=== PATIENT | male | born 1960 | race Caucasian/White ===

== ENCOUNTER 2023-02-10 21:07 | Emergency (ER) | payer OTHER ==
[2023-02-10 21:18] VITALS: RESP 18; TEMP 98
--- NOTE | 2023-02-10 21:53 | ED ---
ENT HPI - General Chief complaint: Dental/Oral Stated complaint: Toothache Time Seen by Provider: 02/10/23 21:16 Source: patient, RN notes reviewed, old records reviewed Mode of arrival: ambulatory Limitations: no limitations - History of Present Illness Initial comments: This is a 62-year-old male to the emergency department for evaluation of dental pain severe dental pain and swelling. Patient does have a loose tooth which she believes is secondary infection secondary to severe pain with no trauma. Patient does have some. Drainage from his mouth. Otherwise no complaints MD complaint: tooth pain -: days(s) Location: tooth # Severity: moderate Severity scale (1-10): 4 Consistency: constant Improves with: none Worsens with: none Context- Dental: history of dental caries Associated Symptoms: other (0) - Related Data Allergies Allergy/AdvReac Type Severity Reaction Status Date / Time No Known Allergies Allergy Verified 02/10/23 21:12 Review of Systems ROS Statement: Those systems with pertinent positive or pertinent negative responses have been documented in the HPI. ROS Other: All systems not noted in ROS Statement are negative. Past Medical History Past Medical History: No Reported History History of Any Multi-Drug Resistant Organisms: None Reported Past Surgical History: Coronary Bypass/CABG Past Psychological History: No Psychological Hx Reported Smoking Status: Current every day smoker Past Alcohol Use History: Occasional Past Drug Use History: None Reported General Exam Limitations: no limitations General appearance: alert, in no apparent distress Head exam: Present: atraumatic, normocephalic, normal inspection Eye exam: Present: normal appearance, PERRL, EOMI. Absent: scleral icterus, conjunctival injection, periorbital swelling ENT exam: Present: normal exam, mucous membranes moist, other (Loose tooth with evidence of abscess) Neck exam: Present: normal inspection. Absent: tenderness, meningismus, lymphadenopathy Respiratory exam: Present: normal lung sounds bilaterally. Absent: respiratory distress, wheezes, rales, rhonchi, stridor Cardiovascular Exam: Present: regular rate, normal rhythm, normal heart sounds. Absent: systolic murmur, diastolic murmur, rubs, gallop, clicks GI/Abdominal exam: Present: soft, normal bowel sounds. Absent: distended, tenderness, guarding, rebound, rigid Extremities exam: Present: normal inspection, full ROM, normal capillary refill. Absent: tenderness, pedal edema, joint swelling, calf tenderness Back exam: Present: normal inspection Neurological exam: Present: alert, oriented X3, CN II-XII intact Psychiatric exam: Present: normal affect, normal mood Skin exam: Present: warm, dry, intact, normal color. Absent: rash Course Vital Signs 02/10/23 02/10/23 21:09 22:22 Temperature 98 F Pulse Rate 71 72 Respiratory 18 18 Rate Blood Pressure 196/98 195/120 O2 Sat by Pulse 96 95 Oximetry - Reevaluation(s) Reevaluation #1: medical record is reviewed Reevaluation #2: patients pain is controlled Reevaluation #3: patient informed of results and questions answered Reevaluation #4: Was pt. sent in by a medical professional or institution (, [facility], [employer], urgent care, hospital, or longterm...) When possible be specific @ -no Did you speak to anyone other than the patient for history (EMS, parent, family, police, friend...)? What history was obtained from this source @ -no Did you review nursing and triage notes (agree or disagree)? Why? @ -agree Are old charts reviewed (outside hosp., previous admission, EMS record, old EKG, old radiological studies, urgent care reports/EKG's, longterm records)? Report findings @ -yes Differential Diagnosis (chest pain, altered mental status, abdominal pain women, abdominal pain men, vaginal bleeding, weakness, fever, dyspnea, syncope, headache, dizziness, GI bleed, back pain, seizure, CVA, palpatations, mental health, musculoskeletal)? @ -prior EKG interpreted by me (3pts min.). @ -no X-rays interpreted by me (1pt min.). @ -no CT interpreted by me (1pt min.). @ -no U/S interpreted by me (1pt. min.). @ -no What testing was considered but not performed or refused? (CT, X-rays, U/S, labs)? Why? @ -none What meds were considered but not given or refused? Why? @ -none Did you discuss the management of the patient with other professionals (professionals i.e. SRUT[facility] Carmona, [employer], lab, RT, psych nurse, social media project manager, supply officer, teacher, aoc airspace control officer, pillowcase cutter)? Give summary @ -no Was smoking cessation discussed for >3mins.? @ -no Was critical care preformed (if so, how long)? @ -no Were there social determinants of health that impacted care today? How? (Homelessness, low income, unemployed, alcoholism, drug addiction, transportation, low edu. Level, literacy, decrease access to med. care, custodial, rehab)? @ -none Was there de-escalation of care discussed even if they declined (Discuss DNR or withdrawal of care, Hospice)? DNR status @ -no What co-morbidities impacted this encounter? (DM, HTN, Smoking, COPD, CAD, Cancer, CVA, ARF, Chemo, Hep., AIDS, mental health diagnosis, sleep apnea, morbid obesity)? @ -none Was patient admitted / discharged? Hospital course, mention meds given and route, prescriptions, significant lab abnormalities, going to OR and other pertinent info. @ - 62 male to the ED complains of severe dental pain with loose tooth. Patient given a follow-up to oral facial surgery for likely tooth removal secondary to abscess place on antibiotics Discharge Undiagnosed new problem with uncertain prognosis? @ -no Drug Therapy requiring intensive monitoring for toxicity (Heparin, Nitro, Insulin, Cardizem)? @ -no Were any procedures done? @ -no Diagnosis/symptom? @ -Dental Abscess Acute, or Chronic, or Acute on Chronic? @ -Acute Uncomplicated (without systemic symptoms) or Complicated (systemic symptoms)? @ -Complicated Side effects of treatment? @ -no Exacerbation, Progression, or Severe Exacerbation? @ -exacerbation Poses a threat to life or bodily function? How? (Chest pain, USA, PA, pneumonia, PE, COPD, DKA, ARF, appy, cholecystitis, CVA, Diverticulitis, Homicidal, Suicidal, threat to staff... and all critical care pts) @ -no Medical Decision Making - Medical Decision Making 62 Disposition Clinical Impression: Dental abscess, Dental caries Disposition: HOME SELF-CARE Condition: Good Instructions (If sedation given, give patient instructions): Dental Abscess (ED), Toothache (ED) Is patient prescribed a controlled substance at d/c from ED?: No Referrals: Federico Rollins DDS [STAFF PHYSICIAN] - 1-2 days Abdoulaye Pettit DDS [STAFF PHYSICIAN] - 1-2 days Time of Disposition: 21:55
[2023-02-10] MEDS ORDERED: AMOXIC-POT CLAV 875-125MG 1 EACH TAB PO STA (21:57)
[2023-02-10] MEDS ORDERED: IBUPROFEN 600 MG STARTER PACK 4 TAB BTL PO STA (21:57)
[2023-02-10] MEDS ORDERED: ACET/COD 300 MG/30 MG STARTER PACK 6 TAB BTL PO STA (21:57)
[2023-02-10] MEDS ORDERED: Acetaminophen-Codeine 300-30mg TAB PO STA (21:57)
[2023-02-10] MEDS ORDERED: AMOXIC-POT CLAV 875MG STARTER PACK 2 TAB BTL PO STA (21:57)
[2023-02-10] MEDS ORDERED: HYDROmorphone 1 MG/ML 1 ML SYRINGE IM STA (21:57)
[2023-02-10 22:32] VITALS: BP 195/120; PULSE 72
== END 2023-02-10 22:23 | disposition home or self-care (01) ==
LOC: EC 21:07
DX: K04.7 Periapical abscess without sinus (principal); K02.9 Dental caries, unspecified; F17.200 Nicotine dependence, unspecified, uncomplicated; Z95.1 Presence of aortocoronary bypass graft
CPT/HCPCS: 99283; 96372; J1170